=== PATIENT | male | born 1990 | race Caucasian/White ===

== ENCOUNTER 2018-04-05 05:13 | Emergency (ER) | payer SELFPAY ==
[2018-04-05] MEDS ORDERED: Ketorolac Tromethamine 30 MG/ML VIAL ONE (05:44)
[2018-04-05] MEDS ORDERED: Dexamethasone 10 MG/ML VIAL ONE ×2 (05:44→08:27)
[2018-04-05] MEDS ORDERED: Clindamycin/D5W 600 mg/50 ml Premix Bag ONE (06:26)
[2018-04-05 07:13] LABS: #Basophils 0.1 thou/uL (0.0-0.2); #Lymphocytes 0.7 thou/uL (1.20-3.40); #Monocytes 1.1 thou/uL (0.11-0.59); #Neutrophils 10.4 thou/uL (1.40-6.50); %Basophils 0.5 % (0.0-1.0); %Eosinophils 0.2 % (0.0-10.0); %Lymphocytes 5.9 % (21.0-51.0); %Neutrophils 84.5 % (42.0-75.0); Hemoglobin 13.5 g/dL (14.0-18.0); Mean Corpuscular HGB CONC 33.9 g/dL (32.0-36.0); Mean Corpuscular Volume 88.5 fL (78.0-98.0); Mean Platelet Volume 8.4 fL (7.4-10.4); Platelet Count 217 thou/uL (130-400); RBC Distribution Width 12.1 % (11.5-14.5); White Blood Cell (WBC) Count 12.4 thou/uL (4.8-10.8)
[2018-04-05 07:34] LABS: ALT (SGPT) 18 U/L (8-55); AST (SGOT) 21 U/L (5-34); Albumin 3.5 g/dL (3.5-5.0); Alkaline Phosphatase 74 U/L (40-150); Anion Gap 15 mmol/L (10-20); BUN (Urea Nitrogen) 12 mg/dL (8.9-20.6); Bilirubin, Total 0.4 mg/dL (0.2-1.2); Calc. Creatinine Clearance 0 mL/min (70-130); Calcium 8.5 mg/dL (7.8-10.44); Carbon Dioxide 19 mmol/L (22-29); Chloride 105 mmol/L (98-107); Estimated GFR-MDRD Greater than 90; Glucose 107 mg/dL (70-105); Potassium 3.8 mmol/L (3.5-5.1); Protein, Total 6.5 g/dL (6.0-8.3); Sodium 135 mmol/L (136-145)
--- NOTE | 2018-04-05 08:14 | RAD ---
TWO VIEWS OF THE NECK: Date: 04-05-18 Comparison: None. History: Hoarseness, swollen tonsils. FINDINGS: Epiglottis appears normal. No prevertebral soft tissue swelling. There is increased soft tissue density overlying the oropharyngeal airway superior to the epiglottis which may represent palatine tonsillar inflammatory change. Further assessment via CT suggested as cl inically warranted. IMPRESSION: Increased soft tissue density overlying the oropharyngeal airway as above. POS: [facility]
--- NOTE | 2018-04-05 08:16 | CT ---
CT NECK SOFT TISSUES WITH CONTRAST: HISTORY: A 27-year-old male with throat swelling, pharyngitis, hemoptysis, and hoarseness. FINDINGS: Bilateral palatine tonsils are enlarged, with tiger-stripe pattern of enhancement, representing infec tious tonsillitis. The uvula is also edematous and enlarged. This results in mild to moderate narro wing of the airway. The airway of the supraglottic larynx is distended. The trachea is normal in ca liber. The epiglottis, aryepiglottic folds, and vocal cords are of normal thickness. There are reac tive, enlarged bilateral cervical lymph nodes mostly at levels 2, 3, and 4. Lung apices are grossly clear. No abscess identified. Lingual tonsil is normal. Adenoids are minimally hypertrophic. 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 Thyroid gland is unremarkable . Normal appearance of the cervical spine. IMPRESSION: 1. Infectious tonsillitis and pharyngitis involving palatine tonsils and uvula. 2. No abscess. POS: [facility]
[2018-04-05] MEDS ORDERED: Iopamidol 370 76% 100 ML VIAL ONE (12:19)
== END 2018-04-05 08:32 | disposition home or self-care (01) ==
LOC: ERS 05:13
DX: J03.90 Acute tonsillitis, unspecified (principal); Z79.899 Other long term (current) drug therapy
CPT/HCPCS: 36415; 70360; 70491; 80053; 85025; 96365; 96366; 96375; 96376; J1100; J1885; J3490